=== PATIENT | male | born 1965 ===

== ENCOUNTER 2019-01-03 13:47 | Emergency (ER) | payer OTHER ==
[2019-01-03 13:50] VITALS: BMI 24.6
[2019-01-03 13:52] VITALS: BP 145/81; PULSE 67; RESP 18; TEMP 97.9; O2SAT 98
[2019-01-03] MEDS ORDERED: Tetracaine 0.5% Ophth 2 ML BOTTLE OD ONE (14:35)
[2019-01-03] MEDS ORDERED: Fluorescein 1 mg Ophthalmic Strip OD ONE (14:36)
[2019-01-03] MEDS ORDERED: Tetracaine 0.5% Ophth (OR ONLY) ONE (14:44)
[2019-01-03] MEDS ORDERED: Fluorescein 1 mg Ophthalmic Strip ONE (14:44)
--- NOTE | 2019-01-03 15:10 | C.PDOC ---
History Of Present Illness 53-year-old male presents to the ED for evaluation of a foreign body sensation in his right eye. Patient states may have a piece of metal stuck in his right eye after he was grinding something at work 4 days ago. Patient denies contact lens use, blurry vision, direct trauma/injury to the site. Last Tetanus immunization unknown. Time Seen by Provider: 01/03/19 14:30 Chief Complaint (Nursing): Eye Problem History Per: Patient History/Exam Limitations: no limitations Onset/Duration Of Symptoms: Days (4) Current Symptoms Are (Timing): Still Present Injury To Eye?: No Associated Symptoms: FB Sensation. denies: Decreased Vision Additional History Per: Patient Past Medical History Reviewed: Historical Data, Nursing Documentation, Vital Signs Vital Signs: Last Vital Signs Temp 97.9 F 01/03/19 13:50 Pulse 67 01/03/19 13:50 Resp 18 01/03/19 13:50 BP 145/81 01/03/19 13:50 Pulse Ox 98 01/03/19 13:50 - Medical History PMH: No Chronic Diseases Surgical History: No Surg Hx Family History: States: Unknown Family Hx - Social History Hx Alcohol Use: Yes Hx Substance Use: No - Immunization History Hx Tetanus Toxoid Vaccination: No Review Of Systems Eyes: Positive for: Other (foreign body sensation in right eye ). Negative for: Vision Change Physical Exam - Physical Exam Appears: Non-toxic, No Acute Distress Skin: Normal Color, Warm, Dry Head: Atraumatic, Normacephalic Eye(s): bilateral: PERRL, EOMI, right: Other (positive fluorescein uptake at medial aspect of right eye, punctate foreign body noted), left: Normal Inspection Neurological/Psych: Normal Speech, Normal Cognition ED Course And Treatment O2 Sat by Pulse Oximetry: 98 Medical Decision Making Medical Decision Making: I attempted to remove the foreign body using a Q-tip without success. discussed with Dr Avila, will send pt to his office from ed for fb removal Disposition Discussed With : Tristen Avila Doctor Will See Patient In The: Office Counseled Patient/Family Regarding: Studies Performed, Diagnosis, Need For Followup - Disposition Referrals: Tristen Avila [Staff Provider] - Disposition: HOME/ ROUTINE Disposition Time: 15:11 Condition: STABLE Additional Instructions: GO directly to Dr Avila's office for foreign body removal. You were given tetanus booster in ED. 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 - Scribe Statement The provider has reviewed the documentation as recorded by the Scribe (Nancy Bautista) All medical record entries made by the Scribe were at my direction and personally dictated by me. I have reviewed the chart and agree that the record accurately reflects my personal performance of the history, physical exam, medical decision making, and the department course for this patient. I have also personally directed, reviewed, and agree with the discharge instructions and disposition.
== END 2019-01-03 15:19 | disposition home or self-care (01) ==
LOC: C.ER 13:47
DX: T15.91XA Foreign body on external eye, part unspecified, right eye, initial encounter (principal); X58.XXXA Exposure to other specified factors, initial encounter; Y93.89 Activity, other specified; Y92.89 Other specified places as the place of occurrence of the external cause; Y99.0 Civilian activity done for income or pay